=== PATIENT | male | born 1985 | race American Indian/Alaskan Native ===

== ENCOUNTER 2016-06-20 08:53 | Emergency (ER) | payer OTHER ==
[2016-06-20 09:13] VITALS: BP 155/89
--- NOTE | 2016-06-20 10:44 | Emergency Department Report ---
Upper Extremity - [facility] Chief Complaint: Extremity Injury, Upper Stated Complaint: CHEST PAIN/POSS TORN OR PULLED PECTORAL Time Seen by Provider: 06/20/16 10:01 Upper Extremity: Left Shoulder Occurred When: 2 Days Mechanism: Other (lifting during bench pressing weights) Severity: moderate Symptoms: Yes Pain with Movement, Yes Limited Range of Movement, Yes Swelling, Yes Bruising/Ecchymosis, No Deformity, No Numbness, No Weakness, No Laceration or Abrasion Other History: patient states that he felt like a pull in left upper chest and left anterior shoulder 2 days ago when bench pressing weights. ED Review of Systems ROS: Stated complaint: CHEST PAIN/POSS TORN OR PULLED PECTORAL Other details as noted in HPI Constitutional: denies: chills, fever Eyes: denies: eye pain, eye discharge, vision change ENT: denies: ear pain, throat pain Respiratory: denies: cough, shortness of breath, wheezing Cardiovascular: denies: chest pain, palpitations Endocrine: no symptoms reported Gastrointestinal: denies: abdominal pain, nausea, diarrhea Genitourinary: denies: urgency, dysuria Musculoskeletal: joint swelling, arthralgia. denies: back pain Skin: denies: rash, lesions Neurological: denies: headache, weakness, numbness, paresthesias Psychiatric: denies: anxiety, depression Hematological/Lymphatic: denies: easy bleeding, easy bruising ED Past Medical Hx - Past Medical History Previous Medical History?: Yes Hx Hypertension: Yes Hx CVA: No Hx Heart Attack/AMI: No Hx Congestive Heart Failure: No Hx Diabetes: No Hx Deep Vein Thrombosis: No Hx Pulmonary Embolism: No Hx GERD: No Hx Liver Disease: No Hx Renal Disease: No - Surgical History Past Surgical History?: No Additional Surgical History: TONSILLECTOMY. LEFT THUMB - Social History Smoking Status: Never Smoker Substance Use Type: None - Medications Home Medications: Home Medications Medication Instructions Recorded Confirmed Last Taken Type Cyclobenzaprine [Flexeril] 10 mg PO TID PRN #30 tablet 06/20/16 Unknown Rx Lisinopril [Zestril TAB] 40 mg PO QDAY 06/20/16 06/20/16 Unknown History Naproxen [Naprosyn TAB] 500 mg PO BID #30 tablet 06/20/16 Unknown Rx traMADol [Ultram] 50 mg PO Q4HR PRN #30 tablet 06/20/16 Unknown Rx Upper Extremity Exam - Exam General: Vital signs noted. No distress. Alert and acting appropriately. Head and Torso: Yes Chest/Lungs Abnormality (left pectoralis muscle mass swelling and tenderness noted), No HEENT Abnormality, No Neck Tenderness, No Abdominal Tenderness, No Back Tenderness Shoulder Exam: Yes Shoulder Tenderness, Yes Normal Range of Motion in Shoulder, No Clavicle Tenderness, No Shoulder Deformity, No AC Joint Tenderness Arm Exam: Yes Arm/Humerus Tenderness (Left upper anterior proximal upper arm tenderness with swelling and bruising noted), No Arm Deformity Elbow: No Elbow Tenderness, No Normal Range of Motion in Elbow, No Elbow Deformity Forearm: No Forearm Tenderness, No Forearm Deformity, No Pain with Pronation, No Pain with Supination Wrist: Yes Normal ROM in Wrist, No Wrist Tenderness, No Wrist Deformity, No Snuffbox Tenderness, No Pain with Axial Thumb Compression Hand: Yes Normal ROM in Digit(s), No Hand Tenderness, No Hand Deformity, No Digit Tenderness, No Digit(s) Deformity, No Tendon Dysfunction CMS Exam: No Broken Skin, No Normal Distal Pulses, No Normal Capillary Refill, No Normal Distal Sensation ED Course Vital Signs 06/20/16 09:09 Temperature 98.1 F Pulse Rate 73 Respiratory 18 Rate Blood Pressure 155/89 O2 Sat by Pulse 97 Oximetry ED Medical Decision Making - Radiology Data Radiology results: report reviewed, image reviewed Normal X-ray - Medical Decision Making Imaging results reviewed and discussed with patient in room. I have advised patient to limit activity with left arm and will refer to ortho if symptoms fail to resolve or worsen. I will also refer to surgeon as he has incidental umbilical hernia noted. Critical care attestation.: If time is entered above; I have spent that time in minutes in the direct care of this critically ill patient, excluding procedure time. ED Disposition Clinical Impression: Strain of left shoulder, Strain of left pectoralis muscle, Umbilical hernia Disposition: DISCHARGED TO HOME OR SELFCARE Is pt being admited?: No Does the pt Need Aspirin: No Condition: Good Instructions: Muscle Strain (ED), Umbilical Hernia (ED) Prescriptions: Cyclobenzaprine [Flexeril] 10 mg PO TID PRN #30 tablet PRN Reason: Muscle Spasm Naproxen [Naprosyn TAB] 500 mg PO BID #30 tablet traMADol [Ultram] 50 mg PO Q4HR PRN #30 tablet PRN Reason: Pain Referrals: MOOSE YEUNG MD [Other] - 3-5 Days ALEX KELLY MD [Staff Physician] - 3-5 Days OSCAR ALEXANDER MD [Staff Physician] - 3-5 Days Time of Disposition: 11:17
--- NOTE | 2016-06-20 10:55 | XRay Report ---
Left shoulder 3 views: History: Pain and injury. Findings: The a.c. joint appears normal. The glenohumeral joint grossly appears normal. No fracture or dislocation. No soft tissue calcification. Impression: Essentially negative left shoulder.
== END 2016-06-20 11:25 | disposition home or self-care (01) ==
LOC: ED 08:53
DX: S46.912A Strain of unspecified muscle, fascia and tendon at shoulder and upper arm level, left arm, initial encounter (principal); K42.9 Umbilical hernia without obstruction or gangrene; I10 Essential (primary) hypertension; X50.0XXA Overexertion from strenuous movement or load, initial encounter; Y93.89 Activity, other specified; Y99.9 Unspecified external cause status; Y92.89 Other specified places as the place of occurrence of the external cause